=== PATIENT | male | born 1955 | race Caucasian/White ===

== ENCOUNTER 2024-08-08 14:45 | Emergency (ER) | payer MEDICARE, OTHER | END 2024-08-08 18:00 | disposition home or self-care (01) | LOC: JD.ED 14:45 | DX: S89.91XA Unspecified injury of right lower leg, initial encounter (principal); I10 Essential (primary) hypertension; E78.00 Pure hypercholesterolemia, unspecified; Z79.82 Long term (current) use of aspirin; Z79.899 Other long term (current) drug therapy; X50.9XXA Other and unspecified overexertion or strenuous movements or postures, initial encounter; Y93.01 Activity, walking, marching and hiking | CPT/HCPCS: 73590-26-RT; 73590-RT; 99283 ==